=== PATIENT | female | born 2000 | race Caucasian/White ===

== ENCOUNTER 2019-02-08 11:28 | Emergency (ER) | payer OTHER ==
[2019-02-08 11:34] VITALS: BP 139/84
--- NOTE | 2019-02-08 11:42 | ER Document Report ---
ED Medical Screen (RME) - General Chief Complaint: Suicidal Ideation Stated Complaint: POSSIBLE SUICIDAL IDEATIONS Time Seen by Provider: 02/08/19 11:36 Mode of Arrival: Ambulatory Information source: Patient Notes: 18-year-old female presents emergency department with suicidal ideations. Reports she attempted suicide by cutting her wrist 2 weeks ago. Reports that she recently started having suicidal thoughts again after quitting drinking. She also reports she is a history of a cutter. I have greeted and performed a rapid initial assessment of this patient. A comprehensive ED assessment and evaluation of the patient, analysis of test results and completion of the medical decision making process will be conducted by additional ED providers. Dictation of this chart was performed using voice recognition software; therefore, there may be some unintended grammatical errors. - Related Data Allergies/Adverse Reactions: No Known Allergies Allergy (Verified 02/08/19 11:30) Physical Exam - Vital signs Vitals: Temp Pulse Resp BP Pulse Ox 98.2 F 77 16 139/84 H 98 02/08/19 11:32 02/08/19 11:32 02/08/19 11:32 02/08/19 11:32 02/08/19 11:32 Course - Vital Signs Vital signs: Temp Pulse Resp BP Pulse Ox 98.2 F 77 16 139/84 H 98 02/08/19 11:32 02/08/19 11:32 02/08/19 11:32 02/08/19 11:32 02/08/19 11:32
[2019-02-08 12:13] LABS: ABSOLUTE BASOPHILS # (AUTO) 0.1 10^3/uL (0.0-0.2); ABSOLUTE EOSINOPHILS # (AUTO) 0.1 10^3/uL (0.0-0.6); ABSOLUTE LYMPHOCYTES (AUTO) 1.4 10^3/uL (0.5-4.7); ABSOLUTE MONOCYTES (AUTO) 0.6 10^3/uL (0.1-1.4); ABSOLUTE NEUT (AUTO) 6.6 10^3/uL (1.7-8.2); BASOPHILS % (AUTO) 0.7 % (0-2); EOSINOPHILS % (AUTO) 1.5 % (0-6); HEMATOCRIT 43.4 % (36.0-47.0); HEMOGLOBIN 14.8 g/dL (12.0-15.5); LYMPHOCYTES % (AUTO) 16.1 % (13-45); MEAN CORPUSCULAR HEMOGLOBIN 29.9 pg (27.0-33.4); MEAN CORPUSCULAR HGB CONC 34.1 g/dL (32.0-36.0); MEAN CORPUSCULAR VOLUME 88 fl (80-97); MONOCYTES % (AUTO) 6.3 % (3-13); PLATELET COUNT 238 10^3/uL (150-450); RED BLOOD COUNT 4.94 10^6/uL (3.72-5.28); RED CELL DISTRIBUTION WIDTH 12.9 % (11.5-14.0); SEGMENTED NEUTROPHILS % (AUTO) 75.4 % (42-78); TOTAL CELLS COUNTED % (AUTO) 100 %; WHITE BLOOD COUNT 8.7 10^3/uL (4.0-10.5)
[2019-02-08 12:35] LABS: ALBUMIN 4.5 g/dL (3.7-5.6); ALKALINE PHOSPHATASE 56 U/L (50-135); ANION GAP 12 (5-19); ASPARTATE AMINO TRANSFERASE 26 U/L (5-30); BILIRUBIN,DIRECT 0.1 mg/dL (0.0-0.4); BILIRUBIN,TOTAL 0.8 mg/dL (0.2-1.3); BLOOD UREA NITROGEN 9 mg/dL (7-20); CALCIUM 9.5 mg/dL (8.4-10.2); CARBON DIOXIDE 23 mmol/L (22-30); CHLORIDE 105 mmol/L (98-107); GLUCOSE 80 mg/dL (75-110); POTASSIUM 4.3 mmol/L (3.6-5.0); TOTAL PROTEIN 7.3 g/dL (6.3-8.2)
[2019-02-08 12:41] LABS: ACETAMINOPHEN < 10 ug/mL (10-30); ALCOHOL < 10 mg/dL (NONE DETECTED); SALICYLATE < 1.0 mg/dL (2.0-20.0)
--- NOTE | 2019-02-08 12:46 | ER Document Report ---
ED Psych Disorder / Suicide <GUNNAR PA - Last Filed: 02/08/19 17:22> - General Mode of Arrival: Ambulatory Information source: Patient, Friend - HPI Patient complains to provider of: Suicidal ideation, Suicidal plan, Suicidal attempt - pt with h/o depression (currently not treated) with suicide attempt several weeks ago (slashing wrists). Boyfriend stopped her from further harm at the time but no professional help sought. Pt with thoughts today of self harm and tried to slash wrists again but boyfriend intervened and brought here here for further evaluation. <BAY MARTÍNEZ - Last Filed: 02/08/19 17:44> - General Chief Complaint: Suicidal Ideation Stated Complaint: POSSIBLE SUICIDAL IDEATIONS Time Seen by Provider: 02/08/19 11:36 Primary Care Provider: [facility] [Outside] - Follow up in 3-5 days - Related Data Allergies/Adverse Reactions: No Known Allergies Allergy (Verified 02/08/19 11:30) Past Medical History - General Information source: Patient - Social History Smoking Status: Current Every Day Smoker Drug Abuse: Marijuana Family History: None Patient has suicidal ideation: Yes Patient has homicidal ideation: No <BAY MARTÍNEZ - Last Filed: 02/08/19 17:44> Review of Systems - Review of Systems Constitutional: No symptoms reported EENT: No symptoms reported Cardiovascular: No symptoms reported Respiratory: No symptoms reported Gastrointestinal: No symptoms reported Neurological/Psychological: See HPI, Suicidal ideation -: Yes All other systems reviewed and negative <BAY MARTÍNEZ - Last Filed: 02/08/19 17:44> Physical Exam - General General appearance: Appears well In distress: None - HEENT Pharynx: Normal Neck: Normal - Respiratory Respiratory status: No respiratory distress Breath sounds: Normal - Cardiovascular Rhythm: Regular Heart sounds: Normal auscultation Murmur: No - Abdominal Inspection: Normal Tenderness: Nontender - Extremities General upper extremity: Normal inspection General lower extremity: Normal inspection - Neurological Neuro grossly intact: Yes Cognition: Normal Orientation: AAOx4 Speech: Normal <BAY MARTÍNEZ - Last Filed: 02/08/19 17:44> - Vital signs Vitals: Temp Pulse Resp BP Pulse Ox 98.2 F 77 16 139/84 H 98 02/08/19 11:32 02/08/19 11:32 02/08/19 11:32 02/08/19 11:32 02/08/19 11:32 Course - Laboratory Result Diagrams: 02/08/19 11:50 02/08/19 11:50 <GUNNAR PA - Last Filed: 02/08/19 17:22> - Laboratory Result Diagrams: 02/08/19 11:50 02/08/19 11:50 - EKG Interpretation by [facility] EKG shows normal: Sinus rhythm Rate: Normal Rhythm: NSR - nsr without acute change <BAY MARTÍNEZ - Last Filed: 02/08/19 17:44> - Re-evaluation Re-evalutation: 02/08/19 12:53 Awaiting psych eval. and disposition 02/08/19 17:41 Pt. was evaluated by mental health and was deemed appropriate for d/c. She hAS been medically cleared (BAY MARTÍNEZ) - Vital Signs Vital signs: Temp Pulse Resp BP Pulse Ox 98.2 F 77 16 139/84 H 98 02/08/19 11:32 02/08/19 11:32 02/08/19 11:32 02/08/19 11:32 02/08/19 11:32 - Laboratory Laboratory results interpreted by wa: 02/08/19 02/08/19 11:50 11:50 Urine Ketones TRACE H Urine Urobilinogen 4.0 H Salicylates < 1.0 L Acetaminophen < 10 L Discharge <GUNNAR PA - Last Filed: 02/08/19 17:22> <BAY MARTÍNEZ - Last Filed: 02/08/19 17:44> - Discharge Clinical Impression: Bipolar disorder, unspecified Qualifiers: Active/Remission status: remission status unspecified Qualified Code(s): F31.9 - Bipolar disorder, unspecified Condition: Stable Disposition: HOME, SELF-CARE Additional Instructions: You have been evaluated by both medical and behavioral health teams and have been deemed appropriate for discharge. You have been prescribed zyprexa 2.5mg twice daily; please take as prescribed. You are recommended to engage in therapeutic services to help you you learn to interpret your environment, understand your triggers and build your coping skills. AT ANY TIME, IF YOUR SYMPTOMS CHANGE SIGNIFICANTLY OR WORSEN OR YOU DEVELOP NEW SYMPTOMS, RETURN TO THE EMERGENCY DEPARTMENT IMMEDIATELY FOR RE-EVALUATION. Prescriptions: Olanzapine [Zyprexa 2.5 Mg Tablet] 2.5 mg PO BID #30 tablet Referrals: [facility] [Outside] - Follow up in 3-5 days
[2019-02-08 12:56] LABS: APPEARANCE,URINE CLOUDY; BILIRUBIN,URINE NEGATIVE (NEGATIVE); COLOR,URINE YELLOW; GLUCOSE, URINE NEGATIVE (NEGATIVE); KETONES,URINE TRACE mg/dL (NEGATIVE); LEUKOCYTE ESTERASE,URINE NEGATIVE (NEGATIVE); NITRITE,URINE NEGATIVE (NEGATIVE); PROTEIN,URINE NEGATIVE (NEGATIVE); URINE SPECIFIC GRAVITY 1.024
[2019-02-08 13:12] LABS: URINE AMPHETAMINES SCREEN NEGATIVE; URINE BARBITURATES SCREEN NEGATIVE; URINE BENZODIAZEPINES SCREEN NEGATIVE; URINE COCAINE SCREEN NEGATIVE; URINE MARIJUANA (THC) SCREEN UNCONFIRMED POSITIVE; URINE METHADONE SCREEN NEGATIVE; URINE PHENCYCLIDINE SCREEN NEGATIVE
--- NOTE | 2019-02-08 15:09 | EKG REPORT ---
SEVERITY:- NORMAL ECG - SINUS RHYTHM : Confirmed by: Tomy Bautista MD 08-Feb-2019 15:07:32
== END 2019-02-08 17:56 | disposition home or self-care (01) ==
LOC: ER 11:28
DX: F32.9 Major depressive disorder, single episode, unspecified (principal); R45.851 Suicidal ideations; S61.512A Laceration without foreign body of left wrist, initial encounter; S61.511A Laceration without foreign body of right wrist, initial encounter; X83.8XXA Intentional self-harm by other specified means, initial encounter; F17.200 Nicotine dependence, unspecified, uncomplicated; F12.10 Cannabis abuse, uncomplicated
CPT/HCPCS: 36415; 80053; 80307; 81001; 81025; 85025; 93005; 93010; 99285